=== PATIENT | female | born 1975 | race Two or more races ===

== ENCOUNTER 2017-11-16 09:07 | Inpatient (IN) | payer MEDICAID ==
[~2017-11-16] VITALS: Ht 160 cm; Wt 56.7 kg
[~2017-11-16 09:07] MED LIST: FERROUS SULF TAB 325MG; PRENATAL
[2017-11-16 09:57] VITALS: BP 91/51
[2017-11-16] MEDS ORDERED: ceFAZolin 2,000 MG in NACL 0.9% 100 ML IV ONE (11:06)
[2017-11-16 11:32] LABS: BASOPHILS # (AUTO) 0.1 K/uL (0.00-0.22); BASOPHILS % (AUTO) 2.3 % (0.0-2.0); EOSINOPHILS % (AUTO) 0.6 % (0.0-4.0); HEMATOCRIT 36.6 % (36-48); HEMOGLOBIN 12.4 g/dL (12.0-16.0); LYMPHOCYTES # (AUTO) 1.6 K/uL (2.5-16.5); LYMPHOCYTES % (AUTO) 27.3 % (20.5-51.1); MEAN CORPUSCULAR HEMOGLOBIN 31 pg (27-31); MEAN CORPUSCULAR HGB CONC 34 g/dL (33-37); MEAN CORPUSCULAR VOLUME 92 fL (80-94); MONOCYTES # (AUTO) 0.3 K/uL (0.8-1.0); MONOCYTES % (AUTO) 5.5 % (1.7-9.3); NEUTROPHILS # (AUTO) 3.9 K/uL (1.8-7.7); NEUTROPHILS % (AUTO) 64.3 % (42.2-75.2); PLATELET COUNT (AUTO) 151 K/uL (140-450); RED BLOOD CELL COUNT(AUTO) 3.98 MIL/uL (4.20-5.40); RED CELL DISTRIBUTION WIDTH 12.5 % (11.6-13.7); WHITE BLOOD COUNT (AUTO) 5.9 K/uL (4.8-10.8)
[2017-11-16 11:45] LABS: APPEARANCE,URINE HAZY (CLEAR); BILIRUBIN,URINE NEGATIVE (NEGATIVE); BLOOD, URINE NEGATIVE (NEGATIVE); COLOR,URINE YELLOW (YELLOW); LEUKOCYTE ESTERASE ,URINE NEGATIVE (NEGATIVE); NITRITE, URINE NEGATIVE (NEGATIVE); PH,URINE 6.5 (5.0-9.0); UGLUCOSE NEGATIVE (NEGATIVE)
[2017-11-16 12:14] LABS: ALBUMIN 2.6 g/dL (3.4-5.0); ANION GAP 11.9 (8-16); CARBON DIOXIDE 25.1 mmol/L (21-32); CREATININE 0.5 mg/dL (0.6-1.3); TOTAL BILIRUBIN 0.4 mg/dL (0.0-1.0)
[2017-11-16] MEDS: LACTATED RINGERS 1,000 ML IV SCH ×2 (12:34→13:42)
[2017-11-16] MEDS ORDERED: OXYTOCIN 10 UNITS/ML VIAL ONE (15:29)
[2017-11-16] MEDS ORDERED: diphenhydrAMINE 50 MG/ML VIAL IVP ONE (15:30)
[2017-11-16] MEDS ORDERED: BUPIVACAINE-MPF 0.75% 10 ML VIAL INJ ONE (15:30)
[2017-11-16] MEDS ORDERED: MIDAZOLAM 2 MG/2 ML VIAL ONE (15:35)
[2017-11-16] MEDS ORDERED: MORPHINE PRES FREE 10 MG/10 ML AMP IV ONE (15:35)
--- NOTE | 2017-11-16 15:39 | NUR ---
PATIENT HAS BEEN SCREENED AND CATEGORIZED LOW NUTRITION RISK. PATIENT WILL BE SEEN WITHIN 7 DAYS OF ADMISSION. 11/22/[address]
[2017-11-16] MEDS ORDERED: ONDANSETRON 4 MG/2 ML VIAL IVP PRN ×2 (16:05)
[2017-11-16] MEDS ORDERED: NALOXONE 0.4 MG/ML VIAL IVP PRN ×3 (16:05)
[2017-11-16] MEDS ORDERED: MEPERIDINE 25 MG/ML SYR IVP PRN (16:05)
[2017-11-16] MEDS ORDERED: HYDROmorphone PFS 2 MG/ML SYR IVP PRN (16:05)
[2017-11-16] MEDS ORDERED: diphenhydrAMINE 50 MG/ML VIAL IVP PRN ×2 (16:05)
[2017-11-16] MEDS ORDERED: NALBUPHINE 10 MG/ML AMP IVP PRN (16:05)
[2017-11-16] MEDS ORDERED: ONDANSETRON 4 MG/2 ML VIAL ONE (16:06)
[2017-11-16] MEDS ORDERED: diphenhydrAMINE 50 MG/ML VIAL ONE (16:06)
[2017-11-16] MEDS ORDERED: OXYTOCIN 20 UNITS/LR PREMIX 1,000 ML IV ONE (16:07)
[2017-11-16] MEDS ORDERED: OXYTOCIN 10 UNITS in LACTATED RINGERS 1,000 ML IV SCH (16:29)
[2017-11-16] MEDS ORDERED: MEASLES, MUMPS, AND RUBELLA 1 VIAL SQVAC PRN (16:30)
[2017-11-16] MEDS ORDERED: TRIMETHOBENZAMIDE 200 MG/2 ML SYR IM PRN (16:30)
[2017-11-16] MEDS ORDERED: TEMAZEPAM 15 MG CAP PO PRN (16:30)
[2017-11-16] MEDS ORDERED: METHYLERGONOVINE 0.2 MG/ML AMP IM PRN (16:30)
[2017-11-16] MEDS: OXYTOCIN 20 UNITS in LACTATED RINGERS 1,000 ML IV SCH (20:11)
[2017-11-16] MEDS ORDERED: DOCUSATE SOD/SENNA 50/8.6 MG 1 TAB PO SCH (21:00)
[2017-11-17] MEDS: KETOROLAC 30 MG/ML VIAL IM/IVP SCH ×3 (00:05→15:23)
[2017-11-17] MEDS ORDERED: OXYTOCIN 20 UNITS/LR PREMIX 1,000 ML IV ONE (03:44)
[2017-11-17] MEDS: OXYTOCIN 20 UNITS in LACTATED RINGERS 1,000 ML IV SCH (03:49)
[2017-11-17 07:41] LABS: BASOPHILS # (AUTO) 0.1 K/uL (0.00-0.22); BASOPHILS % (AUTO) 0.9 % (0.0-2.0); EOSINOPHILS % (AUTO) 0.3 % (0.0-4.0); HEMATOCRIT 31.6 % (36-48); HEMOGLOBIN 10.8 g/dL (12.0-16.0); LYMPHOCYTES # (AUTO) 0.9 K/uL (2.5-16.5); LYMPHOCYTES % (AUTO) 10.3 % (20.5-51.1); MEAN CORPUSCULAR HEMOGLOBIN 31 pg (27-31); MEAN CORPUSCULAR HGB CONC 34 g/dL (33-37); MEAN CORPUSCULAR VOLUME 91 fL (80-94); MONOCYTES # (AUTO) 0.3 K/uL (0.8-1.0); MONOCYTES % (AUTO) 2.8 % (1.7-9.3); NEUTROPHILS # (AUTO) 7.9 K/uL (1.8-7.7); NEUTROPHILS % (AUTO) 85.7 % (42.2-75.2); PLATELET COUNT (AUTO) 119 K/uL (140-450); RED BLOOD CELL COUNT(AUTO) 3.46 MIL/uL (4.20-5.40); RED CELL DISTRIBUTION WIDTH 12.3 % (11.6-13.7); WHITE BLOOD COUNT (AUTO) 9.2 K/uL (4.8-10.8)
[2017-11-17] MEDS ORDERED: SODIUM PHOSPHATE 118 ML ENEM RC SCH (09:00)
--- NOTE | 2017-11-17 11:28 | NUR ---
Social Service Note: I was informed by patient's nurse Mike, patient experienced depression during previous pregnancies. This is her 3rd . Patient's nurse stated she has not witnessed any concerns regarding patient's behavior. I met with patient and patient's [place]o at bedside. I introduced myself to them and explained my role as a medical director occupational health. They both verbalized understanding. Patient's [place] is limited, her translated at times. Yolis stated they both have had good communication with MD and nursing staff. Patient stated she is happy and does not have any concerns at this time. I provided them with education on community resources for counseling/mental health services and offered them resources. However, they both politely declined resources and stated they know how to seek services. They thanked me for my assistance. No additional follow up needed. I informed patient's nurse of above information.
[2017-11-17] MEDS: oxyCODONE/APAP 5/325 MG 1 TAB TAB PO PRN (20:07)
[2017-11-18] MEDS: oxyCODONE/APAP 5/325 MG 1 TAB TAB PO PRN ×3 (03:07→21:52)
[2017-11-18] MEDS: HYDROcodone/APAP 5/325 MG 1 TAB TAB PO PRN ×2 (08:33→17:17)
[2017-11-18] MEDS: SIMETHICONE 80 MG TAB.CHEW PO PRN ×2 (08:34→21:53)
[2017-11-19] MEDS: oxyCODONE/APAP 5/325 MG 1 TAB TAB PO PRN ×2 (03:46→11:33)
[2017-11-19] MEDS ORDERED: SIMETHICONE 80 MG TAB.CHEW ONE (07:43)
[2017-11-19] MEDS ORDERED: HYDROcodone/APAP 5/325 MG 1 TAB TAB ONE (07:43)
[2017-11-19] MEDS: SIMETHICONE 80 MG TAB.CHEW PO PRN (08:00)
[2017-11-19] MEDS: HYDROcodone/APAP 5/325 MG 1 TAB TAB PO PRN (08:01)
[2017-11-19] MEDS ORDERED: IBUP-2213 PO (10:53)
== END 2017-11-19 15:50 | disposition home or self-care (01) | DRG 540 ==
LOC: MLD 09:07 → OBSVTOIN 09:07 → MFCC 16:06
PROVIDERS: ADMIT Obstetrics & Gynecology; ATTEND Obstetrics & Gynecology
PROC: 10D00Z1 Extraction of Products of Conception, Low, Open Approach (ICD-10-PCS; principal; 2017-11-16 15:00)
PROC: 3E0234Z Introduction of Serum, Toxoid and Vaccine into Muscle, Percutaneous Approach (ICD-10-PCS; 2017-11-18)
DX: O34.211 Maternal care for low transverse scar from previous cesarean delivery (principal); Z23 Encounter for immunization; Z37.0 Single live birth; Z3A.38 38 weeks gestation of pregnancy
CPT/HCPCS: 36415; 76819; 80053; 81003; 85025; 86592; 86850; 86886; 86900; 86901; 90715; J0690; J1200; J1885; J2250; J2270; J2405; J2590; J2790; J3490; J7060; J7120; Q0092